=== PATIENT | male | born 1995 | race Caucasian/White ===

== ENCOUNTER 2018-08-25 11:52 | Emergency (ER) | payer OTHER ==
[~2018-08-25] VITALS: Ht 180.3 cm; Wt 96.0 kg
[2018-08-25 12:30] VITALS: BP 154/95
[2018-08-25] MEDS ORDERED: HYDROCODONE/ACETAMINOPHEN 5/325MG TABLET PO ONE (12:30)
[2018-08-25] MEDS ORDERED: CEPHALEXIN 250MG CAPSULE PO ONE (12:30)
[2018-08-25] MEDS ORDERED: BUPIVACAINE HCL/PF 0.5% (5MG/ML) 10ML INFIL ONE (12:30)
[2018-08-25] MEDS ORDERED: TETANUS, DIPHTHERIA, PERTUSSIS VAC/PF 0.5ML (>7YR OLD) IM ONE (12:30)
== END 2018-08-25 14:44 | disposition home or self-care (01) ==
LOC: ER 13:33
DX: S61.303A Unspecified open wound of left middle finger with damage to nail, initial encounter (principal); X58.XXXA Exposure to other specified factors, initial encounter; Y93.89 Activity, other specified; Y92.89 Other specified places as the place of occurrence of the external cause; Y99.8 Other external cause status
CPT/HCPCS: 73130; 90471; 90715; 99284; J3490